=== PATIENT | male | born 1995 | race Caucasian/White ===

== ENCOUNTER 2018-06-01 12:26 | Inpatient (IN) | payer MEDICAID, OTHER ==
[~2018-06-01] VITALS: Ht 182.9 cm; Wt 68.7 kg
--- NOTE | 2018-06-01 12:27 | NUR ---
PT BIBA BLS TO BED 9
[2018-06-01 12:28] VITALS: BP 117/70
--- NOTE | 2018-06-01 12:38 | NUR ---
bib [facility] bls with c/o substance abuse and n/v. Per [facility] email deployment specialist report, patient was found with bong and weed next to patient. Also patient sts of hearing voices. Patient unsure of what voices are telling him at this time, will continue to reassess. Patient is aox4 to person, place, situation, and time but anxious and restlessness. Patient also reports of n/v x 2 days with generalized abd pain. Side rails up, bed in low locked postion. Dr. Matt aware of pt condition.
--- NOTE | 2018-06-01 13:28 | NUR ---
PATIENT SLEEPING IN BED.
--- NOTE | 2018-06-01 14:27 | NUR ---
CONSULT REQUEST SUBMITTED FOR TELEPSYCH
--- NOTE | 2018-06-01 14:41 | NUR ---
PATIENT RESTING AT THIS TIME. NO SIGNS OF DISTRESS.
[2018-06-01 15:07] LABS: BASOPHILS % (AUTO) 0.6 % (0.0-2.0); EOSINOPHILS # (AUTO) 0.1 K/uL (0-0.4); EOSINOPHILS % (AUTO) 1.1 % (0.0-4.0); HEMATOCRIT 44.8 % (36-52); HEMOGLOBIN 14.6 g/dL (12.0-18.0); MEAN CORPUSCULAR HEMOGLOBIN 29 pg (27-31); MEAN CORPUSCULAR HGB CONC 33 g/dL (33-37); MEAN CORPUSCULAR VOLUME 89.5 fL (80-94); MONOCYTES # (AUTO) 0.5 K/uL (0.8-1.0); MONOCYTES % (AUTO) 6.8 % (1.7-9.3); NEUTROPHILS # (AUTO) 4.9 K/uL (1.8-7.7); NEUTROPHILS % (AUTO) 65.5 % (42.2-75.2); PLATELET COUNT (AUTO) 283 K/uL (140-450); RED BLOOD CELL COUNT(AUTO) 5.01 MIL/uL (4.20-6.10); RED CELL DISTRIBUTION WIDTH 13.6 % (11.6-13.7); WHITE BLOOD COUNT (AUTO) 7.5 K/uL (4.8-10.8)
[2018-06-01 15:23] LABS: APPEARANCE,URINE CLEAR (CLEAR); BARBITURATE, URINE NEG. ng/ml (NEG <=200); BENZODIAZEPINE, URINE NEG. ng/mL (NEG <=200); BILIRUBIN,URINE NEGATIVE (NEGATIVE); BLOOD, URINE NEGATIVE (NEGATIVE); CANNABINOID, URINE POS. ng/mL (NEG <=50); COCAINE, URINE NEG. ng/mL (NEG <=300); COLOR,URINE YELLOW (YELLOW); LEUKOCYTE ESTERASE ,URINE NEGATIVE (NEGATIVE); NITRITE, URINE NEGATIVE (NEGATIVE); OPIATE, URINE NEG. ng/mL (NEG <=2000); PHENCYCLIDINE SCREEN,URINE NEG. ng/mL (NEG <=25); UGLUCOSE NEGATIVE (NEGATIVE)
[2018-06-01 15:26] LABS: ANION GAP 6.7 (8-16); CARBON DIOXIDE 30.9 mmol/L (21-32); CHLORIDE 107 mmol/L (98-107); CREATININE 0.6 mg/dL (0.7-1.3); GFR ARICAN-AMERICAN 213 mL/min (>90); GLUCOSE 100 mg/dL (74-106); POTASSIUM 3.6 mmol/L (3.5-5.1); SODIUM SERUM 141 mmol/L (136-145); UREA NITROGEN, BLOOD 7 mg/dL (7-18)
[2018-06-01 15:31] LABS: ALBUMIN 3.5 g/dL (3.4-5.0); ASPARTATE AMINOTRANSFERASE 12 U/L (15-37); TOTAL BILIRUBIN 0.3 mg/dL (0.0-1.0)
[2018-06-01 15:33] LABS: ACETAMINOPHEN < 0.5 ug/ml (10-30); SALICYLATE < 2.8 mg/dL (2.8-20.0)
--- NOTE | 2018-06-01 16:21 | NUR ---
SPOKE WITH TELEPSYCH DR VAZ AND GAVE HIM A REPORT ON PATIENT. HE STATED HE WOULD CALL THE PATIENT AND THEN GET BACK TO ME.
--- NOTE | 2018-06-01 17:00 | NUR ---
SPOKE WITH PSYCH AGAIN. HE STATED THE PATIENT SHOULD BE ON A 51/50 HOLD. WILL FOLLLOW UP WITH ORDERS.
[2018-06-01] MEDS ORDERED: ZIPRASIDONE MESYLATE 20 MG/ML VIAL IM ONE (17:05)
--- NOTE | 2018-06-01 17:05 | NUR ---
Officer [facility] by bedside examining patient
[2018-06-01] MEDS ORDERED: WATER STERILE 10 ML MC ONE (17:24)
--- NOTE | 2018-06-01 18:43 | NUR ---
patient sts he is not taking any home medication d/t "not being able to afford medication"
--- NOTE | 2018-06-01 19:04 | NUR ---
REPORT RECEIVED FROM MARIA ISABEL DOMINGUEZ
--- NOTE | 2018-06-01 19:04 | NUR ---
REPORT GIVEN TO SURGICAL DRESSING MAKER NURSE FOR CONTINUE OF CARE.
--- NOTE | 2018-06-01 20:17 | NUR ---
PT RESTING, NAD NOTED AT THIS TIME
--- NOTE | 2018-06-01 21:13 | NUR ---
Patient will be admitted to care of DR GAY. Admited to MED-SURG. Will go to room 109-B. Belongings list completed. Report to MARIA ISABEL MORALES.
--- NOTE | 2018-06-01 21:15 | NUR ---
ADMITTED THIS 22 YEAR OLD MALE FROM ER PER [facility] WITH CC OF SUBSTANCE ABUSE AND AUDITORY HALLUCINATION WITH SUICIDAL IDEATION, AMBULATORY TO BED WITH STEADY GAIT, ASSESSMENT DONE, VITAL SIGNS STABLE, PT DENIES SUICIDAL IDEATION AT THIS TIME AND DENIES AUDITORY HALLUCINATION, MEDICAL HX OBTAINED WITH PT ANSWERING NO TO ALL QUESTIONS AND THEN CLOSE HIS EYES AND STATED "I WANT TO SLEEP", SITTER/RN AT BEDSIDE, MONITORED CLOSELY.
[2018-06-01 21:30] VITALS: BP 101/57
--- NOTE | 2018-06-01 22:00 | NUR ---
PROVIDED PT WITH SANDWICH AND JUICE, PT JUST DRANK THE JUICE AND WENT BACK TO SLEEP, MONITORED CLOSELY.
[2018-06-01] MEDS ORDERED: ZOLPIDEM 10 MG TAB PO PRN (22:40)
--- NOTE | 2018-06-02 00:23 | NUR ---
PT SLEEPING, EASILY AROUSABLE, CALM AND COOPERATIVE, VITAL SIGNS STABLE, DENIES PAIN, PT WENT BACK TO SLEEP, CONTINUE TO MONITOR CLOSELY.
[2018-06-02 00:24] VITALS: BP 105/60
--- NOTE | 2018-06-02 03:00 | NUR ---
PT SLEEPING BUT TOSSING AND TURNING, CONTINUE TO MONITOR CLOSELY.
--- NOTE | 2018-06-02 03:30 | NUR ---
PT AWAKE TOSSING AND TURNING AND TALKING TO SELF, ASK IF HE NEEDS ANYTHING STATED NO, MONITORED CLOSELY, OFFERED MEDICATION FOR ANXIETY BUT PT STATED NO, PT WENT BACK TO SLEEP.
--- NOTE | 2018-06-02 03:55 | NUR ---
PT AWAKE TALKING TO SELF, ASK IF HE NEEDS ANYTHING PT STARTED CUSSING AND GETTING VERBALLY ABUSIVE, ATTEMPTED TO TALKED TO PT TO CALM HIM DOWN BUT PT STOOD UP AND RUSHED TOWARDS ME AND CALLING ME NAMES, TOLD ONLINE CONTENT COORDINATOR AND CHARGE NURSE TO CALL SECURITY, HAIM REGALADO WAS CALLED, SECURITY AT BEDSIDE, YELLING AND VERBALLY ABUSIVE, CALLING NAMES AND ACCUSING ME OF TOUCHING HIM, HAIM REGALADO TEAM AT BEDSIDE.
[2018-06-02] MEDS: LORazepam 2 MG/ML VIAL IM/IVP PRN ×2 (04:06→10:34)
--- NOTE | 2018-06-02 04:06 | NUR ---
SHIRLEY TRINIDAD TALKED TO PT, ATIVAN IVP GIVEN, ATE SANDWICH AND DRANK JUICE, PT WENT BACK TO SLEEP AFTERWARDS, MONITORED CLOSELY.
--- NOTE | 2018-06-02 04:54 | NUR ---
Charge nurse made aware by community development officer Gloria, there were no beds available [place] - Cassie intake [facility]- Courtney intake [facility]- Shelia intake [facility]- Bobbi intake [facility]- Shahana will endorsed to AM shift.
--- NOTE | 2018-06-02 05:45 | NUR ---
PT SLEEPING, NO SIGNS OF DISTRESS, MONITORED CLOSELY.
--- NOTE | 2018-06-02 07:19 | NUR ---
PT SLEEPING, NO SIGNS OF DISTRESS, REPORT GIVEN TO MARIA ISABEL SPRAGUE FOR CONTINUITY OF CARE.
--- NOTE | 2018-06-02 08:25 | NUR ---
DUE TO 5150 STATUS PATIENT HAS BEEN CATEGORIZED LOW RISK. PATIENT WILL BE SEEN WITHIN 5-7 DAYS FROM ADMISSION. 06/06/18-06/08/[address]
[2018-06-02 09:00] VITALS: BP 123/82
--- NOTE | 2018-06-02 10:30 | NUR ---
PATIENT IS AGITATED AND STATED THAT THE BREAKFAST TRAY WAS NOT PROVIDED FOR THE PATIENT. THE TRAY WAS GIVEN BUT THE PATIENT REFUSED.
--- NOTE | 2018-06-02 10:39 | NUR ---
CM NOTE ADMISSION CHART REVIEW DONE. INITIAL REVIEW FAXED TO [facility] [phone] OSVALDO SANTILLAN # [phone].
--- NOTE | 2018-06-02 11:51 | NUR ---
CALLED DR. ZHAO FOR PSYCH CONSULT PER DR. GAY. HE STATED THAT HE WILL BE IN LATER.
--- NOTE | 2018-06-02 12:00 | NUR ---
PATIENT'S LUNCH TRAY IS AT THE BEDSIDE. PATIENT REFUSED TO EAT.
[2018-06-02 16:30] VITALS: BP 97/49
--- NOTE | 2018-06-02 17:00 | NUR ---
RECEIVED REPORT FROM MARIA ISABEL SPRAGUE. PT IS SLEEPING IN BED AT THIS TIME BUT EASILY AWAKEN, PT IS AAOX2-3, PT IS AMBULATORY, PT HAS ON HIS RIGHT AC, PATENT, INTACT, FLUSHING WELL, ON ROOM AIR, NO S/S OF RESPIRATORY DISTRESS OR DISCOMFORT NOTED, SKIN IS INTACT, DISCUSSED PLAN OF CARE WITH PT, REINFORCEMENT NEEDED, PT ON SUICIDE PRECAUTIONS, 1:1 SITTER AT BEDSIDE, WILL CONTINUE TO MONITOR.
--- NOTE | 2018-06-02 19:03 | NUR ---
ENDORSED PT TO NUCLEAR FUELS RESEARCH ENGINEER NURSE FOR CONTINUITY OF CARE. PT IS QUIET, CALM AND STABLE AT THIS TIME.
--- NOTE | 2018-06-02 19:05 | NUR ---
RECEIVED PT SLEEPING, EASILY AROUSABLE, CALM BUT WITHDRAWN, NO SIGNS OF PAIN, PT WENT BACK TO SLEEP WITH BLANKET OVER HIS HEAD, ON SUICIDE PRECAUTION FOR 5150, SITTER/RN AT BEDSIDE, MONITORED CLOSELY.
--- NOTE | 2018-06-02 19:53 | NUR ---
PT AWAKE, RESTLESS, STATED "I WANT TO GO HOME, I'M BORED HERE", STARTED GETTING VERBALLY ABUSIVE AND CALLING NAMES, TRY TO CALM PT BY OFFERING SANDWICH AND OFFER TO GIVE ATIVAN TO HELP HIM RELAXED BUT PT STILL VERBALLY ABUSIVE AND CUSSING AT SITTER AND OCCASIONALLY TALKING TO SELF.
--- NOTE | 2018-06-02 20:20 | NUR ---
PROVIDED WITH CHICKEN SANDWICH AND APPLE JUICES, CONSUMED 100%, OFFERED SLEEPING PILL AND ATIVAN BUT PT REFUSED, AFTER EATING PT LIED DOWN AND COVER HIS HEAD WITH BLANKET, STILL TALKING TO SELF WITH OCCASIONAL CUSSING, MONITORED CLOSELY.
--- NOTE | 2018-06-02 22:10 | NUR ---
PT REMOVED HIS GOWN AND THREW IT ON THE FLOOR, OFFERED A NEW ONE BUT REFUSED, PT WENT BACK TO SLEEP.
--- NOTE | 2018-06-02 23:22 | NUR ---
No update from contacted facilities at this time.
[2018-06-02 23:30] VITALS: BP 108/65
--- NOTE | 2018-06-02 23:30 | NUR ---
PT SLEEPING, VITAL SIGNS STABLE, NO DISTRESS NOTED, CONTINUE TO MONITOR CLOSELY, SITTER/RN AT BEDSIDE.
--- NOTE | 2018-06-03 03:40 | NUR ---
PT SLEEPING, NO SIGNS OF DISTRESS, MONITORED CLOSELY.
--- NOTE | 2018-06-03 04:10 | NUR ---
PT AWAKE, VOIDING FREELY USING URINAL, REQUESTING FOR PUDDING AND JUICE, CONSUMED 100%, PT WENT BACK TO SLEEP AFTER EATING, MONITORED CLOSELY.
--- NOTE | 2018-06-03 04:30 | NUR ---
PT LYING ON BED WITH BLANKET OVER HIS HEAD OCCASIONALLY TALKING TO SELF, MONITORED CLOSELY.
[2018-06-03] MEDS: LORazepam 2 MG/ML VIAL IM/IVP PRN ×3 (04:56→13:14)
--- NOTE | 2018-06-03 05:00 | NUR ---
PT STARTED YELLING AND CUSSING TOWARDS RN/JACQUELYNTER, STATED "I WANT TO GO HOME, WHEN CAN I BE RELEASE" AND ALSO STATED THAT HE IS HEARING VOICES, TOLD TO WAIT FOR THE DOCTOR IN THE MORNING AND OFFERED TO GIVE ATIVAN TO HELP HIM CALM DOWN BUT PT REFUSED AND GETS MORE AGITATED, PAGED SECURITY, SECURITY DALE, HOUSE SUP TADYASEMIN AND CLINICAL PHARMACY MANAGER LINDA TRIED TALKING TO PT, PT VERBALLY ABUSIVE AND THREATENING IN BOTH BENINESE AND SERBIAN, JEIMY ANDRADE TRIED TO CONVINCE HIM TO LET US GIVE THE ATIVAN BUT PER RAYMOND PT STATING IN SERBIAN THAT HE WILL KILL HIM (SECURITY) AND HIS WHOLE FAMILY, DECIDED TO LEAVE HIM ALONE FOR NOW TO DE-ESCALATE THE SITUATION, THEN SUDDENLY PT DECIDED HE WANTS THE ATIVAN SHOT, ACCOMPANIED CLINICAL PHARMACY MANAGER LINDA IN GIVING ATIVAN IVP, PT AFTERWARDS REQUESTING FOR PUDDING AND CRACKERS, CONSUMED 100%, PT WENT BACK TO SLEEP WITH HEAD UNDER THE BLANKET, MONITORED CLOSELY.
--- NOTE | 2018-06-03 06:12 | NUR ---
No bed vacancies throughout shift supervisor film processing found. no updates from contacted facilities. will endorse to morning shift to continue looking for placement for patient.
--- NOTE | 2018-06-03 06:17 | NUR ---
PT SLEEPING, NO SIGNS OF DISTRESS, SITTER AT BEDSIDE, MONITORED CLOSELY.
--- NOTE | 2018-06-03 07:10 | NUR ---
PT SLEEPING, NO SIGNS OF DISTRESS, BEDSIDE REPORT GIVEN TO RN KHRIS SEPULVEDA AT BEDSIDE.
[2018-06-03 08:00] VITALS: BP 124/69
--- NOTE | 2018-06-03 09:11 | NUR ---
CM NOTE CONCURRENT REVIEW [facility]ED [facility] [phone] [facility] [phone].
--- NOTE | 2018-06-03 09:45 | NUR ---
PT AT DOOR OF ROOM. STATES HE WANT TO LEAVE, AGGRESSIVE , NOT COMPLIANCE. STATES THAT HE DID NOT SAID TO BE ON HOLD. PT DX IS SI WITH 5150 HOLD. EXPLAINED HIM THAT HE IS ON 5150 HOLD BY DOCTOR, WAITING FOR THE PLACEMENT IN PSYCH FACILITY. PT INSIST ON LEAVING HOSPITAL, USING FOUL WORDS TO STAFF MEMBER. CALLED SECURITY. PT TOOK HIS IV OFF BY HIMSLEF. ASKED HIM NOT TO TAKE IT OFF, NON-COMPLIANCE. SECURITY AT ROOMSIDE WITH PT.
--- NOTE | 2018-06-03 12:30 | NUR ---
PT AGGITATED, SCREAMING, THREATNING TO HURT STAFF,STANDING BY THE DOOR IN UNDERWEAR AND BLANKET ONLY, ASKING TO BE DISCHARGED. DR GAY CALLED ORDER RECIVED FOR HALDOL AND ATIVAN.
--- NOTE | 2018-06-03 12:35 | NUR ---
PT AGITATED. PT STATES TO LEAVE THE HOSPITAL. INFORMED HIM THAT HE IS ON 5150 HOLD, CANNOT GO WITHOUT BEING CLEARED BY PSYCH DOCTOR. ITS DANGEROUS FOR HIM . NON COMPLIANCE. SECURITY AT SITE, PT REALLY AGITATED. PT WALKED OUT OF THE HOSPITAL DOOR. CALLED PD. ACCOUNTING GENERALIST TALKED TO [employer] FROM PD. CHARGE NURSE AWARE. SITTER AT BEDSIDE. FOLLOWED PT TO GATE, OPEN THE DOOR AND LEFT THE HOSPITAL PREMISES.
[2018-06-03] MEDS ORDERED: HALOPERIDOL IM 5 MG/ML VIAL ONE (12:53)
[2018-06-03] MEDS: HALOPERIDOL IM 5 MG/ML VIAL IM PRN (12:54)
--- NOTE | 2018-06-03 12:54 | NUR ---
PT BACK TO HOSPITAL ROOM. PD IN THE ROOM. ADMINISTERED HALDOL ND ATIVAN IM ORDERED. PT COMPLIED WHILE GIVING MEDS TO PT. SECURITY AT ROOM. WILL CONTINUE TO MONITOR PT.
--- NOTE | 2018-06-03 13:25 | NUR ---
PT AGITATED, BAD MOUTHING TO STAFF MEMBER, SECURITY AT BEDSIDE. PT STANDING AT THE DOOR, ON HIS UNDERWEAR ONLY. INFORMED HIM MULTIPLE TIMES THAT HE CANNOT LEAVE THE HOSPITAL WITH BEING CONSULTED BY PSYCH DOCTOR. PT NON COMPLIANCE, TRIED TO STRIKE THE HOSPITAL STAFF PER SECURITY STAFF AND WALKED OUT OF HOSPITAL ON OWN. SECURITY WENT BEHIND PT. PT WALKING DOWN ON THE STREET. WILL NOTIFY PD. CHARGE NURSE AWARE.
--- NOTE | 2018-06-03 14:00 | NUR ---
PT BROUGHT BACK TO MST FLOOR BY PD OFFICER. PT SLEEPING AT THIS TIME. HOSPITAL SECURITY I:1 SITTER FOR PT. CHARGE NURSE AWARE.WILL CONTINUE TO MONITOR PT.
--- NOTE | 2018-06-03 15:01 | NUR ---
Fisher Eel Note: I faxed inquiries to the following hospitals, included telemetry's phone number on fax cover sheet: Per Samara from [facility] , they don't have any beds available at this time and are not anticipating having any today. Per Heather from [facility] , they might have beds available this afternoon. Per Jaimie from [facility] , they don't have beds available at this time and are not anticipating having any this weekend. Per Pedro from [facility] , they don't have any beds available at this time and are not anticipating having any today.
--- NOTE | 2018-06-03 15:33 | NUR ---
Material Handling Technician Note: Per Carmen from [facility] they will review inquiry, she stated they might have beds available today. Per Jimena from [facility] , they don't have a contract with [facility], stated they can't accept any [employer] health plans from [facility] of [facility].
--- NOTE | 2018-06-03 19:25 | NUR ---
ENDORSED PT TO PM NURSE AT BEDSIDE. PT IN STABLE CONDITION. SITTER AT BEDSIDE.
--- NOTE | 2018-06-03 19:26 | NUR ---
RECEIVED REPORT FROM DAY SHIFT NURSE. PT IN BED, SLEEPING. NO S/S OF PAIN. NO S/S OF RESP DISTRESS. NO IV ACCESS. PT IS ON 5150 HOLD. 1:1 SITTER IN THE ROOM.
--- NOTE | 2018-06-03 22:00 | NUR ---
PT LYING IN BED, AWAKE, QUIET. NO C/O PAIN OR SOB. 1:1 SITTER IN THE ROOM.
--- NOTE | 2018-06-04 01:05 | NUR ---
PT RESTING IN BED WITH EYES CLOSED. NO S/S OF RESP DISTRESS.
--- NOTE | 2018-06-04 03:56 | NUR ---
PT SLEEPING. RESP EVEN AND UNLABORED. 1:1 SITTER.
--- NOTE | 2018-06-04 05:10 | NUR ---
PT AWAKE, LYING IN BED. COVERED HIS HEAD WITH BLANKET AND TALKING TO SELF.
--- NOTE | 2018-06-04 07:05 | NUR ---
ENDORSED PT TO DAY SHIFT NURSE. PT IN STABLE CONDITION.
--- NOTE | 2018-06-04 07:13 | NUR ---
PATIENT WAS AWAKE, ALERT. RESPIRATION EVEN, UNLABOR ON ROOM AIR. PATIENT WAS AGITATED, CURSED AT STAFF WHEN ASKED IF NURSE CAN DO VITAL SIGN AND ASSESSMENT. PLAN OF CARE WAS DISCUSSED WITH PATIENT. 1:1 SITTER ENSURED
--- NOTE | 2018-06-04 07:26 | NUR ---
PATIENT STATED HE WANTS TO LEAVE BECAUSE HE HAS KIDS AT HOME, AND WANTS HIS CLOTHES BACK. INFORMED THE PATIENT THAT HE IS STILL ON 5150 HOLD AND HAD TO WAIT FOR THE PSYCHIATRIST. PATIENT REFUSED TO PUT ON HIS GOWN. 1:1 SITTER ENSURED. SECURITY IS AT BEDSIDE.
--- NOTE | 2018-06-04 08:31 | NUR ---
PATIENT IS SLEEPING COMFORTABLY. RESPIRATION EVEN, UNLABOR ON ROOM AIR. NO DISTRESS NOTED AT THIS TIME. 1:1 SITTER ENSURED
--- NOTE | 2018-06-04 09:01 | NUR ---
PATIENT BECAME AGITATED, WALKED OUT OF THE ROOM, DEMANDED TO HAVE HIS CLOTHES BACK AND WANTED TO LEAVE. INFORMED PATIENT THAT HE IS STILL ON 5150 HOLD. PATIENT STARTED CURSING AT STAFF AND SECURITY. CALL FABRICIO WAS CALLED. PD WAS INFORMED.
--- NOTE | 2018-06-04 09:30 | NUR ---
PATIENT WAS TRANSFERRED TO ICU BY SECURITY, NURSE, AND PD. PATIENT WAS PLACED ON 4 POINT RESTRAINT PER ORDER. 1:1 SITTER ENSURED.
--- NOTE | 2018-06-04 10:40 | NUR ---
PATIENT TOOK OFF HIS RIGHT WRIST RESTRAINT, STATED HE NEEDED TO LEAVE. INFORMED PATIENT HE IS STILL ON 5150 HOLD. WHEN ATTEMPTED TO PUT BACK THE RESTRAINT, PATIENT THREATENED TO HIT STAFF. SECURITY WAS CALLED
[2018-06-04] MEDS: LORazepam 2 MG/ML VIAL IM/IVP PRN ×2 (10:44→15:18)
[2018-06-04] MEDS: HALOPERIDOL IM 5 MG/ML VIAL IM PRN ×2 (10:44→15:17)
--- NOTE | 2018-06-04 10:54 | NUR ---
PATIENT THREATEN TO HIT SECURITY WHEN RESTRAINT WAS PLACE BACK ON. MEDS WERE GIVEN PER ORDER. PATIENT WAS TALKING TO HIMSELF AT THIS POINT.
[2018-06-04 11:00] VITALS: BP 121/69
--- NOTE | 2018-06-04 11:30 | NUR ---
RECEIVED PT FROM PREVIOUS SITTER. PT STILL SLEEPING. NO SIGNS AND SYMPTOMS OF AGITATION NOTED. 5150 WITH SITTER. WILL CONTINUE TO MONITOR Addendum: 06/05/18 at 0111 by Samara Reynoso RN MISTAKEN ENTRY. WRONG TIME
--- NOTE | 2018-06-04 11:42 | NUR ---
PATIENT IS RESTING COMFORTABLY. RESPIRATION EVEN, UNLABOR ON ROOM AIR. RESTRAINTS ARE SECURED. 1:1 SITTER ENSURED
[2018-06-04 12:00] VITALS: BP 119/56
--- NOTE | 2018-06-04 13:45 | NUR ---
PATIENT WAS AGITATED, REMOVED THE RESTRAINT, STATED HE WANTED TO GO. SECURITY WAS CALLED.
--- NOTE | 2018-06-04 13:55 | NUR ---
PATIENT WAS PLACED BACK ON RESTRAINT. DR REYES WAS NOTIFIED FOR CONSULT
--- NOTE | 2018-06-04 15:15 | NUR ---
PATIENT REMOVED RESTRAINTS. AMBULATED TO THE BATHROOM. STATED HE WANTS TO LEAVE NOW. CALL REGALADO WAS CALLED. MEDS WERE GIVEN PER ORDER. ENCOURAGED PATIENT TO STAY IN BED UNTIL SEEN BY PSYCHIATRIST. 1:1 SITTER ENSURED Addendum: 06/04/18 at 1546 by Yessenia Espinoza RN PATIENT REFUSED TO LET STAFF PUT THE RESTRAINTS BACK ON, AND ONLY MEDICATED.
--- NOTE | 2018-06-04 16:24 | NUR ---
PATIENT IS SLEEPING COMFORTABLY, RESPIRATION EVEN, UNLABOR ON ROOM AIR. NO DISTRESS NOTED AT THIS TIME. 1:1 SITTER ENSURED
--- NOTE | 2018-06-04 17:42 | NUR ---
PATIENT AWAKE, ALERT, EATING DINNER. RESPIRATION EVEN, UNLABOR ON ROOM AIR. NO DISTRESS NOTED AT THIS TIME. 1:1 SITTER ENSURED.
--- NOTE | 2018-06-04 19:15 | NUR ---
RECEIVED PT FROM AIDE RN, PT IS SLEEPING AT THIS TIME, EASY TO AWAKE,MOVE FREQUENTLY, ROOM AIR, RESP EVEN UN LABOR.NO S/S OF RESP.DISTRESS, NO SOB.PT SAYING NO WHEN ASKING IF ANY PAIN. PT CONTINUE ON 1: 1 SITTER .
--- NOTE | 2018-06-04 19:16 | NUR ---
ENDORSEMENT GIVEN TO REFINING ENGINEER NURSE. PATIENT IS STABLE AT THIS TIME
[2018-06-04 20:00] VITALS: BP 130/75
--- NOTE | 2018-06-04 20:29 | NUR ---
PT ALLOWS TO TAKE HIS V/S T 97.4,P 88,R 16,BP 130/75,SPO2 96%. EXTRA BLAKET GIVEN TO PT AND HE SAID THANK YOU.PT WAS URINATE X1 WITH 400 CC YELLOW CLEAR URINE. PT BACK TO SLEEP.
--- NOTE | 2018-06-04 21:00 | NUR ---
PT ATE TUNA SANDWICH AND BACK TO SLEEP.
--- NOTE | 2018-06-04 22:00 | NUR ---
PT SLEEPING WELL AND REFUSED TO TAKE V/S AT THIS TIME. NO S/S OF ANY DISTRESS. NO AGITATION AT THIS TIME.
--- NOTE | 2018-06-04 23:30 | NUR ---
RECEIVED PT FROM PREVIOUS SITTER, PT IS SLEEPING AT THIS TIME, EASY TO AWAKE,MOVE FREQUENTLY, ROOM AIR, RESP EVEN AND UNLABORED.NO S/S OF RESP.DISTRESS, NO SOB. NO S/S OF PAIN NOTED. PT CONTINUE ON 1: 1 SITTER .
--- NOTE | 2018-06-04 23:31 | NUR ---
NO RESTRAINTS ON PT WHEN RECEIVED FROM PREVIOUS SITTER.
--- NOTE | 2018-06-04 23:40 | NUR ---
PT IS CALM AND RELAX NO RESTRAINT APPLY,CONTINUE ON SITTER 1:1.CONTINUE TO MONITOR CLOSELY.
--- NOTE | 2018-06-05 | NUR ---
PT IS SLEEPING WELL, PT TOOK OVER BY MARION NICOLAS A SITTER 1:1 REPORT GIVEN.
--- NOTE | 2018-06-05 | NUR ---
PT REFUSED VITAL SIGNS. STILL SLEEPING
--- NOTE | 2018-06-05 00:12 | NUR ---
PT SLEEPING PRONE. MOVES FREQUENTLY. NO S/S OF PAIN. NO SIGNS OF RESPIRATORY DISTRESS. WILL CONTINUE TO MONITOR.
[2018-06-05 02:00] VITALS: BP 114/64
--- NOTE | 2018-06-05 02:00 | NUR ---
PT SLEEPING. NO COMPLAINTS OF PAIN. NO S/S OF AGITATION. NOTED PT TO HAVE OCCASIONAL MUMBLING. WILL CONTINUE TO MONITOR.
--- NOTE | 2018-06-05 04:00 | NUR ---
PT REFUSED VITAL SIGNS. PT SLEEPING SUPINE POSITION.
--- NOTE | 2018-06-05 05:00 | NUR ---
PT SLEEPING ON BED SUPINE, PT NO S/S OF AGITATION. NO COMPLAINTS OF PAIN. RESPIRATIONS EVEN AND UNLABORED. WILL CONTINUE TO MONITOR.
--- NOTE | 2018-06-05 05:28 | NUR ---
ENDORSED TO NEXT SITTER. PT IN COMFORTABLE POSITION. NO SIGNS AND SYMPTOMS OF DISTRESS.NO AGITATION NOTED
[2018-06-05 06:00] VITALS: BP 122/70
--- NOTE | 2018-06-05 07:00 | NUR ---
PT SUDDENLY AWAKE AND GET OUT OF BED, START TO TALK TO HIM SELF AND KEPT SAYING WILL GO OUT OF THE HOSPITAL, AND MIKE FROM ER SITTER TRYING TO CALM HIM DOWN, PT TRYING TO GET CLOSE TO HIM AND YELLING AND RAISING HIS HAND TRYING TO REACH THE SITTER, PT WALK OUT OF ICU AND WALK OUT THOUGH EMERGENCY EXIT CLOSE TO ICU ROOM. CODE CHAN WAS PAGE. SECURITY AND ER STAFF COME TO FOLLOW PT OUT SIDE THE BUILDING. PT WAS KEEP GOING AND WALK OUT OF FACILITY. FERNANDA PALMER WAS INFORM AND AWARE. REPORT GIVEN TO AM SHIFT THAT PT IS ELOPE. AND MADE AWARE THAT FERNANDA PALMER AWARE AND WAS INFORM.
--- NOTE | 2018-06-05 07:18 | NUR ---
PT CAME BACK TO THE UNIT WITH SECURITY GUARDS. PT DENIES OF HEARING VOICES AND DENIES OF SUICIDAL IDEATION. PT CALM AND RE-ORIENTED TO THE UNIT. DISCUSSED ABOUT PLAN OF CARE. PT AGREEABLE. VSS. NO ACUTE DISTRESS NOTED. ALL SAFETY PRECAUTIONS ARE IN PLACE. PT SPECIAL SAFETY BED CHECKED AND FUNCTIONING WELL.
--- NOTE | 2018-06-05 07:56 | NUR ---
PT CONSUMED 100% BREAKFAST. ASSISTED WITH MORNING CARE WITH SET UP ASSIST. ROM IN ALL EXTREMITIES WITHIN RANGE. PT A&OX3, VERBAL. PERRL. BILATERAL LUNGS SOUND CLEAR. BOWEL SOUNDS ACTIVE FROM ALL 4 QUADS. DENIES HEARING ANY VOICES OR HAVING ANY SUICIDAL IDEATION. MINI PAIN OR DISCOMFORT. AFEBRILE. ALL SAFETY PRECAUTIONS IN PLACE. CONTINUE WITH 1:1 MONITORING.
[2018-06-05 08:00] VITALS: BP 143/71
--- NOTE | 2018-06-05 08:05 | NUR ---
PT WANTING TO GO HOME. PAGED DR. HERNANDEZ. DR. HERNANDEZ CALLED BACK AND SAID TO CALL DR. REYES. PAGED DR. REYES.
--- NOTE | 2018-06-05 08:15 | NUR ---
PT STATES THAT HE FEELS PARANOID AND WANTING TO GO HOME. EXPLAINED PT THAT AM WAITING ON DR. REYES TO CALL BACK. PT STARTED USING FOUL LANGUAGE TALKING TO HIMSELF AND TO STAFF AT THIS TIME. PT SUDDENLY GOT UP FROM BED AND KEPT INSISTING STAFF THAT HE NEEDS TO GO HOME USING "F WORDS". CALLED HAIM REGALADO. OFFERED MEDICATION AND HE DECLINES AT THIS TIME.
[2018-06-05] MEDS: HALOPERIDOL IM 5 MG/ML VIAL IM PRN (08:25)
[2018-06-05] MEDS: LORazepam 2 MG/ML VIAL IM/IVP PRN (08:25)
--- NOTE | 2018-06-05 08:25 | NUR ---
SECURITY AT BED SIDE. EXPLAINED PT THAT WE ARE WAITING ON PSYCH MD'S CALL BACK. OFFERED MED IF HE FEELS ANXIOUS PARANOID. PT AGREEABLE WITH MEDICATION. MEDS ADMINISTERED ORDERED. WILL CONTINUE TO MONITOR.
--- NOTE | 2018-06-05 08:40 | NUR ---
DR. THOMAS HOME MANAGER FOR DR. REYES CALLED BACK. NOTIFIED THAT PT WANTING TO GO HOME. DR. THOMAS STATED THAT HE IS NOT MEDICALLY CLEARED TO GO HOME EVEN IF THE 5150 72 HR HOLD IS OVER THAT THE ATTENDING MD WILL NEED TO CLEAR HIM. DR. GAY WAS PAGED. AWAITING A CALL BACK. EXPLAINED PT ABOUT THE CONVERSATION WITH PSYCH MD. PT IS BACK TO BED AT THIS TIME. NO ACUTE DISTRESS NOTED. ALL SAFETY PRECAUTIONS IN PLACE. CONTINUING WITH 1:1 MONITORING.
--- NOTE | 2018-06-05 09:12 | NUR ---
DR. HERNANDEZ FROM DR. GAY CALLED BACK AND STATED THAT HE IS MEDICALLY CLEARED AND HE CAN DC HOME LONG PSYCH CLEARS HIM. PAGED DR. THOMAS RUGBY UNION FOOTBALLER FOR DR. REYES. AWAITING FOR A CALL BACK.
--- NOTE | 2018-06-05 10:00 | NUR ---
DR. COLE, SEO COORDINATOR FOR DR. REYES CALLED BACK AND MADE AWARE OF MEDICAL CLEARANCE FROM DR. HERNANDEZ. DR. THOMAS SAID HE WILL BE IN TO ASSESS HIM TODAY.
--- NOTE | 2018-06-05 10:05 | NUR ---
PT RESTING IN BED. REFUSED VITAL SIGNS X 3 STATING THAT HE WANTS TO REST AND DOES NOT BE BOTHERED. RISK AND BENEFITS EXPLAINED X 3. CONTINUE TO MONITOR 1:1 OBSERVATION. ALL SAFETY PRECAUTIONS ARE IN PLACE.
--- NOTE | 2018-06-05 11:15 | NUR ---
PT ASLEEP AND AWAKEN BRIEFLY ASKING FOR HIS CLOTHES. RE-ORIENTATION PROVIDED. PT BACK RESTING. CONTINUING WITH 1:1 MONITORING. ALL SAFETY PRECAUTIONS ARE IN PLACE.
--- NOTE | 2018-06-05 11:20 | NUR ---
FAXED INQUIRY TO [facility] @[phone] AND [facility] @[phone].
--- NOTE | 2018-06-05 11:44 | NUR ---
RECEIVED A CALL FROM [facility] THAT HIS 5150 HOLD IS NO LONGER EFFECTIVE AND HE IS DEEMED NOT ACUTE AND CANNOT TAKE THE PT UNLESS NEW 5150 HOLD IS ESTABLISHED. NOTIFIED DR. COLE ABOUT THE SITUATION. HE SAID HE WOULD BE COMING IN TO SEE PT TODAY.
--- NOTE | 2018-06-05 11:47 | NUR ---
PT VERBALIZED WANTING TO GO HOME. EXPLAINED THE PT ABOUT PSYCH MD COMING TO SEE HIM TODAY TO RE-EVALUATE HIM. PT STARTED CURSING AND YELLING AT STAFF, VERY UPSET. HAIM REGALADO CALLED. OFFERED PT MEDICATIONS BUT PT REFUSED X3.
--- NOTE | 2018-06-05 11:50 | NUR ---
PT INSISTED WANTING TO LEAVE AND VERY UPSET SAYING WHY HE CANNOT LEAVE. EXPLAINED THAT PSYCH DOCTOR IS COMING TO SEE HIM TODAY AND THERE IS NO DISCHARGE ORDER. PT KEPT INSISTING THAT HE DOES NOT NEED TO HERE AND HE FEELS WELL. HE STATED THAT HE IS NOT HEARING ANY VOICES AND DOES NOT HAVE SUICIDAL IDEATION AND THAT HE NEEDS TO LEAVE NOW. PT SIGNED THE AMA PAPER AND LEFT THE UNIT WITH SECURITY.
--- NOTE | 2018-06-05 11:51 | NUR ---
HOUSE SUP IN THE UNIT AND KNOWS THE SITUATION.
--- NOTE | 2018-06-05 12:00 | NUR ---
REPORTED TO ACACIA FROM [place] [facility] DEPARTMENT OF PT'S AMA STATUS.
--- NOTE | 2018-06-05 12:10 | NUR ---
LACHO VENEGAS, COUNTER ATTENDANT FOR DR. REYES AND DR. HERNANDEZ, COUNTER ATTENDANT FOR DR. GAY.
--- NOTE | 2018-06-05 12:17 | NUR ---
DR. COLE MADE AWARE OF PT LEAVING AMA.
--- NOTE | 2018-06-05 12:38 | NUR ---
DR. HERNANDEZ CALLED BACK AND MADE AWARE OF PT'S AMA STATUS.
--- NOTE | 2018-06-05 13:11 | NUR ---
REPORTED TO JAIMEE FROM [facility] DEPT ABOUT RESIDENT'S AMA AND RESIDENT'S REASON FOR BEING IN THE HOSPITAL. [phone].
--- NOTE | 2018-06-05 13:15 | NUR ---
CALLED [facility] @[phone] TO SPOKE TO FRAN ABOUT PT'S AMA AND PT'S REASON FOR BEING IN THE HOSPITAL.
== END 2018-06-05 11:50 | disposition left against medical advice (07) | DRG 751 ==
LOC: MED 12:26 → MTU 19:22 → MIC 06-04 09:30
PROVIDERS: ADMIT Hospitalist; ATTEND Hospitalist
DX: F29 Unspecified psychosis not due to a substance or known physiological condition (principal); E11.9 Type 2 diabetes mellitus without complications; R45.851 Suicidal ideations; F12.90 Cannabis use, unspecified, uncomplicated; F31.9 Bipolar disorder, unspecified; Z59.0 Homelessness
CPT/HCPCS: 36415; 80053; 80305; 81003; 82948; 85025; 87081; 96372; 99285; G0480; G0482; J1630; J2060; J3486

== ENCOUNTER 2020-01-02 11:46 | Emergency (ER) | payer OTHER ==
--- NOTE | 2020-01-02 11:50 | NUR ---
1st call in er lizandro n/a
--- NOTE | 2020-01-02 11:56 | NUR ---
PATIENT LEFT WITHOUT BEING SEEN BY . NO FURTHER CARE PROVIDED FOR PATIENT.
--- NOTE | 2020-01-02 11:59 | NUR ---
3rd call [facility] bone access [facility]
== END 2020-01-02 11:50 | disposition left against medical advice (07) ==
LOC: MED 11:46
DX: Z53.21 Procedure and treatment not carried out due to patient leaving prior to being seen by health care provider (principal)